=== PATIENT | male | born 1960 | race Caucasian/White ===

== ENCOUNTER 2023-07-14 16:32 | Emergency (ER) | payer OTHER ==
[~2023-07-14] VITALS: Ht 172.7 cm; Wt 76.0 kg
[2023-07-14 17:30] LABS: BASOPHILS 1.3 % (0-2); EOSINOPHILS 5.1 % (0-6); HEMATOCRIT 19.9 % (35.0-50.0); HEMOGLOBIN 6.7 g/dL (12.0-18.0); LYMPHOCYTES 15.1 % (24-44); MCH 29.8 (27-36); MCHC 33.4 g/dl (30-36); MCV 89.3 fl (81-99); MONOCYTES 8.4 % (0-12); NEUTROPHILS 70.1 % (39-80); PLATELET COUNT 290 K/uL (140-440); RBC 2.23 M/ul (4.3-5.7); RDW 18.3 (10.5-15.0)
[2023-07-14] MEDS ORDERED: MUPIROCIN22 GM TOP (17:44)
[2023-07-14] MEDS ORDERED: CARVEDILOL6.25 MG PO (17:45)
[2023-07-14] MEDS ORDERED: PANTOPRAZOLE SO40 MG PO (17:45)
[2023-07-14] MEDS ORDERED: ATORVASTATIN CA80 MG PO (17:45)
[2023-07-14] MEDS ORDERED: ELIQUIS5 MG PO (17:45)
[2023-07-14] MEDS ORDERED: DOCUSATE SODIU100 MG PO (17:46)
[2023-07-14] MEDS ORDERED: CLOPIDOGREL75 MG PO (17:46)
[2023-07-14 18:28] LABS: ABO A; RH POSITIVE
[2023-07-14 18:29] LABS: ANTIBODY SCREEN NEGATIVE; IS CROSSMATCH COMPATIBLE
[2023-07-14 22:15] VITALS: BP 160/85
[2023-07-15 14:25] LABS: RBC, LEUKOREDUCED 18212403919600P
== END 2023-07-14 22:15 | disposition home or self-care (01) ==
LOC: ED 16:32
PROVIDERS: Emergency Medicine
DX: N18.9 Chronic kidney disease, unspecified (principal); D63.1 Anemia in chronic kidney disease; Z99.2 Dependence on renal dialysis; Z88.0 Allergy status to penicillin; Z88.1 Allergy status to other antibiotic agents; Z79.01 Long term (current) use of anticoagulants; Z79.02 Long term (current) use of antithrombotics/antiplatelets; Z79.899 Other long term (current) drug therapy
CPT/HCPCS: 36415; 36430; 85025; 86850; 86900; 86901; 86922; 99284-25; P9016